=== PATIENT | male | born 1985 | race Hispanic/Latino ===

== ENCOUNTER 2017-07-29 11:55 | Emergency (ER) | payer OTHER ==
[2017-07-29 12:04] VITALS: RESP 18
[2017-07-29 12:45] LABS: URINE BILIRUBIN NEGATIVE (NEGATIVE); URINE BLOOD NEGATIVE (NEGATIVE); URINE CLARITY Clear (Clear); URINE COLOR Yellow (YELLOW); URINE GLUCOSE (UA) 3+ mg/dL (Normal); URINE LEUKOCYTE ESTERASE NEG Leu/uL (Negative); URINE NITRATE NEGATIVE (NEGATIVE); URINE PROTEIN NEGATIVE (NEGATIVE); URINE UROBILINOGEN NORMAL mg/dL (0.2-1.0)
[2017-07-29] MEDS ORDERED: Sodium Chloride 0.9% 2,000 ML IV ONE (12:58)
[2017-07-29] MEDS ORDERED: Sodium Chloride 0.9% 1,000 ML ONE (13:18)
[2017-07-29 13:38] LABS: BASO # 0.1 K/uL (0.0-0.2); BASO % 0.6 % (0.0-2.0); EOS # 0.1 K/uL (0.0-0.7); HEMOGLOBIN 13.9 g/dL (12.0-18.0); LYMPH % 21.7 % (20.0-40.0); MEAN CORPUSCULAR HEMOGLOBIN 28.2 pg (27.0-31.0); MEAN CORPUSCULAR HGB CONC 32.8 g/dL (33.0-37.0); MEAN PLATELET VOLUME 7.4 fL (7.2-11.7); MONO # 0.4 K/uL (0.0-0.8); MONO % 4.3 % (0.0-10.0); NEUT # 6.6 K/uL (1.8-7.0); NEUT % 72.4 % (50.0-75.0); RBC 4.91 Mil/uL (4.40-5.90); RED CELL DISTRIBUTION WIDTH 13.1 % (11.5-14.5); WHITE BLOOD COUNT 9.1 K/uL (4.8-10.8)
[2017-07-29 13:39] LABS: VENOUS BLOOD GAS BASE EXCESS 3.3 mmol/L (0.0-2.0); VENOUS BLOOD GAS PCO2 48 mmHg (40-60); VENOUS BLOOD GAS PO2 62 mm/Hg (30-55); VENOUS BLOOD PH 7.39 (7.32-7.43)
[2017-07-29] MEDS ORDERED: (Novolin R) Insulin Human Regular 100 units/ml vial IV STA (13:40)
--- NOTE | 2017-07-29 13:41 | C.PDOC ---
History Of Present Illness 32-year-old male, PMHx includes IDDM, presents to the emergency department requesting med refill. Patient states he ran out of his Novolin yesterday. Last dose was last night. States his sugar is usually between 200-250. Patient notes that he is experiencing a diffuse abdominal pain which is associated with his diabetes symptoms, and has experienced in the past. Denies nausea/vomiting, diarrhea, fevers or any other associated symptoms. No other complaints at this time. Time Seen by Provider: 07/29/17 12:41 Chief Complaint (Nursing): Abdominal Pain History Per: Patient History/Exam Limitations: no limitations Onset/Duration Of Symptoms: Days Current Symptoms Are (Timing): Still Present Severity: Moderate Past Medical History Reviewed: Historical Data, Nursing Documentation, Vital Signs Vital Signs: Last Vital Signs Temp 98.4 F 07/29/17 16:14 Pulse 58 L 07/29/17 16:14 Resp 18 07/29/17 16:14 BP 147/75 07/29/17 16:14 Pulse Ox 99 07/29/17 16:14 Family History: States: No Known Family Hx - Social History Hx Alcohol Use: Yes Hx Substance Use: No - Immunization History Hx Tetanus Toxoid Vaccination: No Hx Influenza Vaccination: No Hx Pneumococcal Vaccination: No Review Of Systems Except As Marked, All Systems Reviewed And Found Negative. Constitutional: Negative for: Fever, Chills Cardiovascular: Negative for: Chest Pain Respiratory: Negative for: Shortness of Breath Gastrointestinal: Positive for: Abdominal Pain. Negative for: Nausea, Vomiting Musculoskeletal: Negative for: Back Pain Neurological: Negative for: Weakness, Numbness, Headache, Dizziness Physical Exam - Physical Exam Appears: Non-toxic, No Acute Distress Skin: Warm, Dry, No Rash Head: Atraumatic, Normacephalic Eye(s): bilateral: Normal Inspection, PERRL Nose: Normal Oral Mucosa: Moist Lips: Normal Appearing Neck: Normal ROM Chest: Symmetrical Cardiovascular: Rhythm Regular, No Murmur Respiratory: Normal Breath Sounds, No Accessory Muscle Use Gastrointestinal/Abdominal: Soft, No Tenderness Extremity: Normal ROM Neurological/Psych: Oriented x3, Normal Speech ED Course And Treatment - Laboratory Results Result Diagrams: 07/29/17 13:29 07/29/17 13:29 O2 Sat by Pulse Oximetry: 100 (on RA) Pulse Ox Interpretation: Normal Progress - Re-Evaluation Re-evaluation Note: 07/29/17 16:24 FEELS BETTER, REPEAT FS IMPROVED. PT REQUESTING DC HOME - Data Reviewed Data Reviewed: Lab, Old records Disposition Counseled Patient/Family Regarding: Studies Performed, Diagnosis, Need For Followup, Rx Given - Disposition Referrals: YOUR,PMD [Other] Disposition: HOME/ ROUTINE Disposition Time: 16:25 Condition: IMPROVED Prescriptions: Insulin Lispro [Humalog Kwikpen U-200] 200 unit SQ BID #1 [email or web address] Instructions: Diabetic Hyperglycemia (ED) Forms: [employer] - is now [employer] (Singaporean) - Clinical Impression Clinical Impression: Uncontrolled diabetes mellitus - Scribe Statement The provider has reviewed the documentation as recorded by the Scribe (Kristofer [place]) All medical record entries made by the Scribe were at my direction and personally dictated by me. I have reviewed the chart and agree that the record accurately reflects my personal performance of the history, physical exam, medical decision making, and the department course for this patient. I have also personally directed, reviewed, and agree with the discharge instructions and disposition.
[2017-07-29] MEDS ORDERED: (Novolin R) Insulin Human Regular 100 units/ml vial ONE (13:57)
[2017-07-29 14:08] LABS: ALB/GLOB RATIO 1.2 (1.0-2.1); ALBUMIN 3.7 g/dL (3.5-5.0); ALT/SGPT 39 U/L (21-72); AST/SGOT 38 U/L (17-59); BLOOD UREA NITROGEN 16 mg/dL (9-20); CALCIUM 7.6 mg/dl (8.6-10.4); GFR AFRICAN-AMERICAN > 60; GFR NON-AFRICAN AMERICAN > 60
[2017-07-29 16:14] VITALS: BP 147/75; PULSE 58; TEMP 98.4
[2017-07-29 16:26] VITALS: O2SAT 100
== END 2017-07-29 16:37 | disposition home or self-care (01) ==
LOC: C.ER 11:55
DX: E11.65 Type 2 diabetes mellitus with hyperglycemia (principal); Z79.4 Long term (current) use of insulin
CPT/HCPCS: 80053; 81001; 82009; 82803; 82948; 85025; 96361; 96374; 96375; 99284; J2270; J7040

== ENCOUNTER 2017-11-11 07:37 | Emergency (ER) | payer OTHER ==
--- NOTE | 2017-11-11 08:00 | C.PDOC ---
History Of Present Illness 32 yo male came into ER requests Insulin refill. Pt note that he took his last dose last night (8units), usually takes 10-15 units. Also notes he ran out of his test strips. Notes his sugar is usually 200-250. 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 Denies chest pain, sob, abdominal pain, n/v , headache, increased thirst or urination. Time Seen by Provider: 11/11/17 07:42 Chief Complaint (Nursing): Med Refill History Per: Patient History/Exam Limitations: no limitations Onset/Duration Of Symptoms: Days Current Symptoms Are (Timing): Still Present Past Medical History Reviewed: Historical Data, Nursing Documentation, Vital Signs Vital Signs: Last Vital Signs Temp 98 F 11/11/17 10:12 Pulse 76 11/11/17 10:12 Resp 16 11/11/17 10:12 BP 142/89 11/11/17 10:12 Pulse Ox 99 11/11/17 10:12 - Medical History PMH: No Chronic Diseases Surgical History: No Surg Hx Family History: States: No Known Family Hx - Social History Hx Alcohol Use: Yes Hx Substance Use: No - Immunization History Hx Tetanus Toxoid Vaccination: No Hx Influenza Vaccination: No Hx Pneumococcal Vaccination: No Review Of Systems Except As Marked, All Systems Reviewed And Found Negative. Constitutional: Negative for: Fever, Chills Cardiovascular: Negative for: Chest Pain Respiratory: Negative for: Shortness of Breath Gastrointestinal: Negative for: Nausea, Vomiting Skin: Negative for: Rash Physical Exam - Physical Exam Appears: Well, Non-toxic, No Acute Distress Skin: Normal Color, Warm, Dry Head: Atraumatic, Normacephalic Eye(s): bilateral: Normal Inspection, EOMI Nose: Normal Teeth: No Normal Dentition (poor dentition) Neck: Normal, Normal ROM, Supple Cardiovascular: Rhythm Regular Respiratory: Normal Breath Sounds Gastrointestinal/Abdominal: Normal Exam, Soft, No Tenderness Back: Normal Inspection Extremity: Normal ROM Neurological/Psych: Oriented x3, Normal Speech ED Course And Treatment - Laboratory Results Result Diagrams: 11/11/17 09:00 11/11/17 09:00 O2 Sat by Pulse Oximetry: 100 Progress Note: IVF fluids and insulin ordered. Discussed with pt concern risks of untreated hyperglycemia and smoking and the and disability it can lead to . Instructed strict follow up in 1-2 days. Disposition - Disposition Disposition: HOME/ ROUTINE Disposition Time: 07:57 Condition: STABLE Additional Instructions: Please find an e tailer and make an appointment as soon as possible. Return to ER if symptoms persist or worsen. Prescriptions: Glucose, Blood Test [Blood Glucose Test Strips] 1 packet XX TID #1 dev Insulin Lispro [Humalog Kwikpen U-200] 8 unit SQ TID #1 [email or web address] Instructions: Type 1 Diabetes Forms: [employer] (Taiwanese) - Clinical Impression Clinical Impression: Uncontrolled diabetes mellitus - PA / DECORATING INSTRUCTOR / Resident Statement MD/DO has reviewed & agrees with the documentation as recorded. - Scribe Statement The provider has reviewed the documentation as recorded by the Naima Arenas All medical record entries made by the Naima were at my direction and personally dictated by me. I have reviewed the chart and agree that the record accurately reflects my personal performance of the history, physical exam, medical decision making, and the department course for this patient. I have also personally directed, reviewed, and agree with the discharge instructions and disposition.
[2017-11-11] MEDS ORDERED: Sodium Chloride 0.9% 1,000 ML IV ONE (08:23)
[2017-11-11] MEDS ORDERED: (Novolin R) Insulin Human Regular 100 units/ml vial IV STA ×2 (08:23)
[2017-11-11] MEDS ORDERED: (Novolin R) Insulin Human Regular 100 units/ml vial ONE (09:02)
[2017-11-11] MEDS ORDERED: Sodium Chloride 0.9% 1,000 ML ONE (09:02)
[2017-11-11 09:11] LABS: BASO # 0.1 K/uL (0.0-0.2); BASO % 0.7 % (0.0-2.0); EOS # 0.2 K/uL (0.0-0.7); EOS % 1.6 % (0.0-4.0); HEMOGLOBIN 15.6 g/dL (12.0-18.0); LYMPH # 2.4 K/uL (1.0-4.3); LYMPH % 24.5 % (20.0-40.0); MEAN CELL VOLUME 87.3 fL (80.0-94.0); MEAN CORPUSCULAR HEMOGLOBIN 29.9 pg (27.0-31.0); MEAN CORPUSCULAR HGB CONC 34.2 g/dL (33.0-37.0); MEAN PLATELET VOLUME 6.9 fL (7.2-11.7); MONO # 0.7 K/uL (0.0-0.8); MONO % 6.9 % (0.0-10.0); NEUT # 6.6 K/uL (1.8-7.0); NEUT % 66.3 % (50.0-75.0); NRBC % 0.1 % (0.0-2.0); RBC 5.24 Mil/uL (4.40-5.90); RED CELL DISTRIBUTION WIDTH 13.7 % (11.5-14.5)
[2017-11-11 09:24] LABS: ALB/GLOB RATIO 1.2 (1.0-2.1); ALBUMIN 4.1 g/dL (3.5-5.0); ALT/SGPT 24 U/L (21-72); AST/SGOT 41 U/L (17-59); BLOOD UREA NITROGEN 18 mg/dL (9-20); CALCIUM 8.9 mg/dl (8.6-10.4); GFR AFRICAN-AMERICAN > 60; GFR NON-AFRICAN AMERICAN > 60
[2017-11-11 10:13] VITALS: BP 142/89; PULSE 76; RESP 16; TEMP 98
[2017-11-11 10:46] VITALS: O2SAT 100
== END 2017-11-11 10:12 | disposition home or self-care (01) ==
LOC: C.ER 07:37
DX: E11.65 Type 2 diabetes mellitus with hyperglycemia (principal); Z79.4 Long term (current) use of insulin
CPT/HCPCS: 80053; 82009; 82948; 85025; 96360; 99283; J7040

== ENCOUNTER 2018-02-09 08:36 | Emergency (ER) | payer OTHER ==
[2018-02-09 08:51] VITALS: O2SAT 98
[2018-02-09] MEDS ORDERED: Sodium Chloride 0.9% 1,000 ML IV ONE (09:08)
--- NOTE | 2018-02-09 09:21 | C.PDOC ---
History Of Present Illness 32 y/o male with history of IDDM presents to ED for evaluation of high blood sugar and requesting medication refill. Patient states he ran out of diabetes medication and has sugar level of 400 at ED. Patient denies dizziness,weakness, headache, nausea, vomiting or any other complaints at this time. Time Seen by Provider: 02/09/18 08:39 Chief Complaint (Nursing): High Blood Sugar History Per: Patient History/Exam Limitations: no limitations Onset/Duration Of Symptoms: Days Current Symptoms Are (Timing): Still Present Severity: Mild Current Diabetic Medications: Insulin Causative (Exacerbating) Factor(s): Missed Taking Medication Treatment Prior To Provider Evaluation: Accucheck Recent travel outside of the [place]: No Past Medical History Reviewed: Historical Data, Nursing Documentation, Vital Signs Vital Signs: Last Vital Signs Temp 98.3 F 02/09/18 10:47 Pulse 55 L 02/09/18 10:47 Resp 18 02/09/18 10:47 BP 116/62 02/09/18 10:47 Pulse Ox 98 02/09/18 10:47 - Medical History PMH: Diabetes Surgical History: No Surg Hx Family History: States: No Known Family Hx - Social History Hx Alcohol Use: No Hx Substance Use: No - Immunization History Hx Tetanus Toxoid Vaccination: No Hx Influenza Vaccination: No Hx Pneumococcal Vaccination: No Review Of Systems Constitutional: Negative for: Fever, Chills Gastrointestinal: Negative for: Nausea, Vomiting, Abdominal Pain Skin: Negative for: Rash Neurological: Negative for: Weakness, Numbness, Dizziness Physical Exam - Physical Exam Appears: Non-toxic, No Acute Distress Skin: Warm, Dry, No Rash Head: Atraumatic, Normacephalic Eye(s): bilateral: Normal Inspection Oral Mucosa: Moist Neck: Supple Cardiovascular: Rhythm Regular Respiratory: Normal Breath Sounds, No Rales, No Rhonchi, No Wheezing Gastrointestinal/Abdominal: Soft, No Tenderness, No Guarding, No Rebound Extremity: Normal ROM, Capillary Refill (<2 seconds) Neurological/Psych: Oriented x3, Normal Speech, Normal Cognition Gait: Steady ED Course And Treatment - Laboratory Results Result Diagrams: 02/09/18 09:49 02/09/18 09:49 Lab Interpretation: Abnormal O2 Sat by Pulse Oximetry: 98 (RA) Pulse Ox Interpretation: Normal Progress Note: Blood work, UA ordered. IV fluids administered. On re- evaluation feeling better. Advised to follow up with PMD or clinic Reassessment Condition: Improved Disposition Counseled Patient/Family Regarding: Studies Performed, Diagnosis, Need For Followup, Rx Given - Disposition Referrals: Enrico Valdovinos MD [Staff Provider] - [facility] [Outside] [facility] [Outside] Disposition: HOME/ ROUTINE Disposition Time: 10:25 Condition: STABLE Prescriptions: Insulin Lispro [Humalog (Insulin Lispro)] 10 unit SQ DAILY #1 vial Instructions: Hyperglycemia, Adult, Diabetes Diet , The ABCs of Diabetes Forms: [employer] (Finnish) - POA Present On Arrival: None - Clinical Impression Clinical Impression: Hyperglycemia, Uncontrolled diabetes mellitus - PA / ENGRAVER JEWELRY / Resident Statement MD/DO has reviewed & agrees with the documentation as recorded. - Scribe Statement The provider has reviewed the documentation as recorded by the Scribradha Arenas All medical record entries made by the Uriibradha were at my direction and personally dictated by me. I have reviewed the chart and agree that the record accurately reflects my personal performance of the history, physical exam, medical decision making, and the department course for this patient. I have also personally directed, reviewed, and agree with the discharge instructions and disposition.
[2018-02-09 09:54] LABS: BASO # 0.1 K/uL (0.0-0.2); BASO % 0.8 % (0.0-2.0); EOS # 0.1 K/uL (0.0-0.7); EOS % 1.7 % (0.0-4.0); HEMOGLOBIN 14.3 g/dL (12.0-18.0); LYMPH # 1.8 K/uL (1.0-4.3); MEAN CORPUSCULAR HEMOGLOBIN 29.5 pg (27.0-31.0); MEAN CORPUSCULAR HGB CONC 33.5 g/dL (33.0-37.0); MONO # 0.5 K/uL (0.0-0.8); MONO % 6.8 % (0.0-10.0); NEUT # 5.5 K/uL (1.8-7.0); NEUT % 68.7 % (50.0-75.0); RBC 4.84 Mil/uL (4.40-5.90); RED CELL DISTRIBUTION WIDTH 13.3 % (11.5-14.5)
[2018-02-09 09:58] LABS: URINE BILIRUBIN NEGATIVE (NEGATIVE); URINE BLOOD NEGATIVE (NEGATIVE); URINE CLARITY Clear (Clear); URINE COLOR Yellow (YELLOW); URINE GLUCOSE (UA) 3+ mg/dL (Normal); URINE LEUKOCYTE ESTERASE NEG Leu/uL (Negative); URINE PROTEIN NEGATIVE (NEGATIVE); URINE UROBILINOGEN NORMAL mg/dL (0.2-1.0)
[2018-02-09 10:06] LABS: CALCIUM 8.4 mg/dl (8.6-10.4); GFR AFRICAN-AMERICAN > 60; GFR NON-AFRICAN AMERICAN > 60
[2018-02-09 10:07] LABS: ALB/GLOB RATIO 1.5 (1.0-2.1); ALBUMIN 4.1 g/dL (3.5-5.0); ALT/SGPT 30 U/L (21-72); AST/SGOT 68 U/L (17-59); BLOOD UREA NITROGEN 14 mg/dL (9-20)
[2018-02-09 10:48] VITALS: BP 116/62; PULSE 55; RESP 18; TEMP 98.3
== END 2018-02-09 10:49 | disposition home or self-care (01) ==
LOC: C.ER 08:36
DX: E11.65 Type 2 diabetes mellitus with hyperglycemia (principal); Z79.4 Long term (current) use of insulin